=== PATIENT | male | born 1940 | race Hispanic/Latino ===

== ENCOUNTER 2022-11-28 13:51 | Emergency (ER) | payer OTHER, MEDICARE ==
[~2022-11-28] VITALS: Ht 170.2 cm; Wt 86.2 kg
[2022-11-28 13:53] VITALS: BP 121/75
[2022-11-28] MEDS ORDERED: ACET-66 PO (14:41)
== END 2022-11-28 16:20 | disposition home or self-care (01) ==
LOC: EDH 13:51
DX: S63.282A Dislocation of proximal interphalangeal joint of right middle finger, initial encounter (principal); E11.9 Type 2 diabetes mellitus without complications; F03.90 Unspecified dementia, unspecified severity, without behavioral disturbance, psychotic disturbance, mood disturbance, and anxiety; E78.00 Pure hypercholesterolemia, unspecified; X58.XXXA Exposure to other specified factors, initial encounter; Y93.89 Activity, other specified; Y92.128 Other place in nursing home as the place of occurrence of the external cause; Y99.8 Other external cause status
CPT/HCPCS: 26770; 73140